=== PATIENT | female | born 1990 | race African-American/Black ===

== ENCOUNTER 2021-01-10 10:40 | Emergency (ER) | payer OTHER ==
[~2021-01-10] VITALS: Ht 165.1 cm; Wt 116.1 kg
--- NOTE | ~2021-01-10 | EMS ---
[address] [address] EMS Patient Care Report Name: MARY SOARES Room #: DEP MINDI Hurt#: [id number] Admission: 01/10/21 Attend Phys: Discharge: 01/10/21 Date of : [birth year] Report #: [id number] THIS REPORT FOR: //name// Report Transmitted: 01/11/2021 09:24 EMS Care Summary [place], [place]/[facility] Incident [id number] @ 01/10/2021 10:18 Incident Location [address] [place] [id number] Patient MARY SOARES Female, 30 Years 1990 Patient Address [address] [place] [address] Patient History None Reported, Patient Allergies No known allergies, Patient Medications None Reported, Chief Complaint EYE PAIN Disposition Transported No Lights/[place] Dispatch Reason Eye Problem/Injury Transported To [facility] Narrative SCENE: ON ARRIVAL PT FOUND SITTING UPRIGHT IN CHAIR IN FRONT AREA OF ADDRESS PROVIDED. PT IS AWAKE AND ALERT WITH A GCS OF 15. PT C/O PAIN BEHIND HER LEFT EYE. PT DENIES ANY INJURY OR TRAUMA TO THE EYE. PT REPORTS SHE HAS NEVER HAD [address] [address] EMS Patient Care Report Name: MARY SOARES Room #: [facility] Licha#: [id number] Admission: 01/10/21 Attend Phys: Discharge: 01/10/21 Date of : [birth year] Report #: [id number] THIS PAIN BEFORE. PT DENIES ALL OTHER COMPLAINTS. PT REPORTS THE EYE IS SENSITIVE TO LIGHT. PT REQUESTS TRANSPORT TO THE [facility]. AMBULANCE: VIALS MONITORED. NO CHANGES. Initial Vitals @10:33P: 114,R: 18,BP: 145/53,Pain: 8/10,GCS: 15,Revised Trauma: 12, @10:35P: 100,R: 18,BP: 136/70,GCS: 15,Revised Trauma: 12, Assessments @10:28MENTAL:SKIN:No Abnormalities,HEENT:Eyes: Left: Other,Head/Face: No Abnormalities,Neck/Airway: No Abnormalities,LUNG SOUNDS:General: No Abnormalities,Left Upper: No Abnormalities,Right Upper: No Abnormalities,Left Lower: No Abnormalities,Right Lower: No Abnormalities,ABDOMEN:General: No Abnormalities,Left Upper: No Abnormalities,Right Upper: No Abnormalities,Left Lower: No Abnormalities,Right Lower: No Abnormalities,PELVIS//GI:No Abnormalities,EXTREMITIES:Left Arm: No Abnormalities,Right Arm: No Abnormalities,Left Leg: No Abnormalities,Right Leg: No Abnormalities,PULSE:NEURO:No Abnormalities,@10:34MENTAL:No Abnormalities,SKIN:No Abnormalities,HEENT:Eyes: Left: Other,Head/Face: No Abnormalities,Neck/Airway: No Abnormalities,LUNG SOUNDS:General: No Abnormalities,Left Upper: No Abnormalities,Right Upper: No Abnormalities,Left Lower: No Abnormalities,Right Lower: No Abnormalities,ABDOMEN:General: No Abnormalities,Left Upper: No Abnormalities,Right Upper: No Abnormalities,Left Lower: No Abnormalities,Right Lower: No Abnormalities,PELVIS//GI:No Abnormalities,EXTREMITIES:Left Arm: No Abnormalities,Right Arm: No Abnormalities,Left Leg: No Abnormalities,Right Leg: No Abnormalities,PULSE:NEURO:No Abnormalities, Impression Eye Pain Procedures @10:27ALS AssessmentResponse: UnchangedSucceeded Timeline 10:16,Call Received 10:16,Dispatch Notified 10:18,Dispatched 10:19,En Route 10:25,On Scene 10:27,At Patient 10:27,ALS Assessment,Response: UnchangedSucceeded, 10:33,Depart Scene 10:33,BP: 145/53 M,PULSE: 114,RR: 18 R,SPO2: Ox,ETCO2: ,BG: ,PAIN: 8,GCS: 15, 10:35,BP: 136/70 M,PULSE: 100,RR: 18 R,SPO2: Ox,ETCO2: ,BG: ,PAIN: ,GCS: 15, [address] [address] EMS Patient Care Report Name: MARY SOARES Room #: DEP [facility]#: [id number] Admission: 01/10/21 Attend Phys: Discharge: 01/10/21 Date of : [birth year] Report #: [id number] 10:36,At Destination 11:07,Call Closed Disclaimer [email or web address] Copyright 2020 [employer] This EMS Care Summary contains data elements from the applicable legal record (which may be displayed differently). It is designed to provide pertinent information for the following purposes: continuity of care, clinical quality, and state data reporting. The complete legal record is available to ED staff and administrators of the receiving hospital in [facility]'s Patient Tracker. All data is provided "as is."
[2021-01-10 11:50] LABS: ABSOLUTE NEUTROPHILS 2.4 thou/uL (1.4-8.2); BASOPHILS 1.1 % (0.0-2.0); EOSINOPHILS 1.6 % (0.0-3.0); HEMATOCRIT 38.4 % (37.0-47.0); HEMOGLOBIN 12.9 gm/dL (12.0-15.0); LYMPHOCYTES 35.7 % (24.0-44.0); MCH 31.2 pg (26.0-34.0); MCHC 33.5 g/dL (28.0-37.0); MCV 93.4 fL (80.0-100.0); MONOCYTES 10.6 % (1.0-8.0); PLATELET COUNT 210 thou/uL (150-400); RBC 4.12 mil/uL (4.20-5.00); RDW 13.1 % (10.5-14.5); WBC 4.7 thou/uL (4.0-11.0)
[2021-01-10 11:56] LABS: CALCIUM 8.5 mg/dL (8.5-10.1)
[2021-01-10 15:27] VITALS: BP 116/71
== END 2021-01-10 15:28 | disposition home or self-care (01) ==
LOC: ER 10:40
PROVIDERS: Nurse Practitioner
DX: H53.142 Visual discomfort, left eye (principal); R51.9 Headache, unspecified